=== PATIENT | male | born 1955 | race African-American/Black ===

== ENCOUNTER → 2017-05-24 | Outpatient (CLI) | payer OTHER | END | disposition home or self-care (01) | LOC: NM 12:21 | DX: I10 Essential (primary) hypertension (principal); Z87.891 Personal history of nicotine dependence | CPT/HCPCS: 93017 ==

== ENCOUNTER 2017-07-16 10:35 | Inpatient (IN) | payer OTHER ==
[2017-07-16 11:13] LABS: AGAP ISTAT 16 mmol/L (6-14); BUN ISTAT 49 mg/dL (8-26); CHLORIDE ISTAT 92 mmol/L (98-110); CREATININE ISTAT 3.3 mg/dL (0.5-1.4); GLUCOSE ISTAT 126 mg/dL (70-99); HEMATOCRIT ISTAT 47 % (37-52); ION CA ISTAT 1.02 mmol/L (1.13-1.32); POTASSIUM ISTAT 4.1 mmol/L (3.5-5.0); SODIUM ISTAT 128 mmol/L (135-145); TOT CO2 ISTAT 25 mmol/L (23-32)
[2017-07-16 11:18] LABS: ADD MAN DIFF? YES; BASO % 0 % (0-3); EOS % 0 % (0-3); HEMATOCRIT 43.7 % (39.0-53.0); HEMOGLOBIN 14.9 g/dL (13.0-17.5); LYMPH # 0.8 x10^3/uL (1.0-4.8); LYMPH % 16 % (24-48); MEAN CORPUSCULAR HEMOGLOBIN 31 pg (25-35); MEAN CORPUSCULAR HGB CONC 34 g/dL (31-37); MEAN CORPUSCULAR VOLUME 91 fL (79-100); MONO % 19 % (0-9); NEUT # 3.4 x10^3uL (1.8-7.7); NEUT % 65 % (31-73); PLATELET COUNT 135 x10^3/uL (140-400); RED CELL DISTRIBUTION WIDTH 13.5 % (11.5-14.5); WHITE BLOOD COUNT 5.3 x10^3/uL (4.0-11.0)
[2017-07-16 11:26] LABS: ANION GAP 13 (6-14); BLOOD UREA NITROGEN 52 mg/dL (8-26); CALCIUM 9.3 mg/dL (8.5-10.1); CARBON DIOXIDE 26 mmol/L (21-32); CHLORIDE 90 mmol/L (98-107); CREATININE 3.4 mg/dL (0.7-1.3); GFR 22.5; GLUCOSE 130 mg/dL (70-99); SODIUM 129 mmol/L (136-145)
[2017-07-16 11:28] LABS: TROPONIN BY ISTAT 0.01 ng/ml (<0.08)
[2017-07-16 11:31] LABS: INR 1.1 (0.8-1.1); PROTHROMBIN TIME PATIENT 13.4 SEC (11.7-14.0)
[2017-07-16 11:32] LABS: ALBUMIN 4.2 g/dL (3.4-5.0); ALK PHOS 86 U/L (46-116); ALT (SGPT) 226 U/L (16-63); AST (SGOT) 153 U/L (15-37); DIRECT BILIRUBIN 0.2 mg/dL (0.0-0.2); LIPASE 779 U/L (73-393); MAGNESIUM 2.7 mg/dL (1.8-2.4); TOTAL BILIRUBIN 0.8 mg/dL (0.2-1.0); TOTAL PROTEIN 8.5 g/dL (6.4-8.2)
[2017-07-16 11:35] LABS: TROPONINI < 0.017 ng/mL (0.000-0.055)
[2017-07-16 11:41] LABS: CKMB INDEX 0.6 % (0-4); CKMB MASS 2.3 ng/mL (0.0-3.6); CREATINE KINASE 381 U/L (39-308)
[2017-07-16 11:41] LABS: NT-PRO BNP 141 pg/mL (0-124)
[2017-07-16 11:48] LABS: % BANDS 1 % (0-9); % LYMPHS 17 % (24-48); % MONOS 14 % (0-10); % SEGS 68 % (35-66)
[2017-07-16 11:49] LABS: PLT ESTIMATE ADEQUATE (ADEQUATE)
[2017-07-16] MEDS: IV NORMAL SALINE 1000ML BAG 1,000 ML IV ×4 (11:55→17:33)
[2017-07-16 12:18] LABS: ETHANOL < 10 mg/dL (0-10)
[2017-07-16 13:18] LABS: BILIRUBIN,URINE SMALL (NEG); CLARITY,URINE TURBID; COLOR,URINE YELLOW; GLUCOSE,URINE NEGATIVE (NEG); NITRITE,URINE NEGATIVE (NEG); PROTEIN,URINE 30 mg/dL (NEG-TRACE); UROBILINOGEN,URINE 0.2 mg/dL (0.2 mg/dL)
[2017-07-16 13:35] LABS: AMPHETAMINE/METHAMPHETAMINE NEG (NEG); BARBITURATES NEG (NEG); BENZODIAZEPINES NEG (NEG); CANNABINOIDS NEG (NEG); COCAINE NEG (NEG); ETHANOL, URINE NEG (NEG); METHADONE NEG (NEG); OPIATES NEG (NEG); PHENCYCLIDINE NEG (NEG)
[2017-07-16 13:42] LABS: BACTERIA,URINE 0 /HPF (0-FEW); HYALINE CASTS, URINE MANY /HPF; SQUAMOUS EPITHELIAL CELL,UR FEW /LPF; WBC,URINE 0 /HPF (0-4)
[2017-07-16] MEDS ORDERED: ONDANSETRON PF 4 MG/2 ML VIAL. IV ×2 (13:45→16:00)
[2017-07-16] MEDS ORDERED: DOCUSATE SODIUM 100 MG CAPSULE. PO (16:00)
[2017-07-16] MEDS ORDERED: MORPHINE SULFATE 4 MG/ML DISP.SYRIN. IV (16:00)
[2017-07-16] MEDS ORDERED: ACETAMINOPHEN 325 MG TABLET. PO (16:00)
[2017-07-16] MEDS ORDERED: traMADol 50 MG TABLET PO (16:00)
[2017-07-16] MEDS ORDERED: hydrALAZINE 20 MG/ML VIAL. IVP (16:00)
[2017-07-16 17:39] LABS: TROPONINI < 0.017 ng/mL (0.000-0.055)
[2017-07-16 20:15] LABS: TROPONINI < 0.017 ng/mL (0.000-0.055)
[2017-07-16] MEDS: HEPARIN PF for SUB-Q USE 5,000 UNIT/0.5 ML VIAL. SQ (22:00)
[2017-07-16] MEDS: SIMVASTATIN 40 MG TABLET. PO (22:20)
[2017-07-17] MEDS: IV NORMAL SALINE 1000ML BAG 1,000 ML IV (02:00)
[2017-07-17] MEDS: HEPARIN PF for SUB-Q USE 5,000 UNIT/0.5 ML VIAL. SQ ×2 (05:23→14:00)
[2017-07-17 05:45] LABS: ADD MAN DIFF? NO
[2017-07-17 05:51] LABS: BASO % 0 % (0-3); EOS # 0.1 x10^3/uL (0.0-0.7); EOS % 2 % (0-3); HEMATOCRIT 39.8 % (39.0-53.0); HEMOGLOBIN 13.1 g/dL (13.0-17.5); LYMPH # 1.4 x10^3/uL (1.0-4.8); LYMPH % 25 % (24-48); MEAN CORPUSCULAR HEMOGLOBIN 31 pg (25-35); MEAN CORPUSCULAR HGB CONC 33 g/dL (31-37); MEAN CORPUSCULAR VOLUME 93 fL (79-100); MONO # 1.3 x10^3/uL (0.0-1.1); MONO % 25 % (0-9); NEUT # 2.6 x10^3uL (1.8-7.7); NEUT % 48 % (31-73); PLATELET COUNT 128 x10^3/uL (140-400); RED BLOOD COUNT 4.29 x10^6/uL (4.30-5.70); RED CELL DISTRIBUTION WIDTH 13.5 % (11.5-14.5); WHITE BLOOD COUNT 5.5 x10^3/uL (4.0-11.0)
[2017-07-17 06:18] LABS: ALBUMIN 3.5 g/dL (3.4-5.0); ALBUMIN/GLOBULIN RATIO 0.9 (1.0-1.7); ALK PHOS 70 U/L (46-116); ALT (SGPT) 159 U/L (16-63); ANION GAP 12 (6-14); AST (SGOT) 92 U/L (15-37); BLOOD UREA NITROGEN 32 mg/dL (8-26); BUN/CREATININE RATIO 20 (6-20); CALCIUM 8.6 mg/dL (8.5-10.1); CARBON DIOXIDE 26 mmol/L (21-32); CHLORIDE 102 mmol/L (98-107); CREATININE 1.6 mg/dL (0.7-1.3); DIRECT BILIRUBIN 0.2 mg/dL (0.0-0.2); GFR 53.6; GLUCOSE 103 mg/dL (70-99); POTASSIUM 4.8 mmol/L (3.5-5.1); SODIUM 140 mmol/L (136-145); TOTAL BILIRUBIN 0.6 mg/dL (0.2-1.0); TOTAL PROTEIN 7.2 g/dL (6.4-8.2)
[2017-07-17 06:24] LABS: LIPASE 562 U/L (73-393)
[2017-07-17 06:24] LABS: CHOLESTEROL 222 mg/dL (0-200); CHOLESTEROL/HDL RATIO 1.9; HDLC 116 mg/dL (40-60); LDLC 98 mg/dL (0-100); NON-HDL CHOLESTEROL 106 mg/dL (0-129); TRIGLYCERIDES 39 mg/dL (0-150); VLDLC 8 mg/dL (0-40)
[2017-07-17 07:42] LABS: PLT ESTIMATE ADEQUATE (ADEQUATE)
[2017-07-17 11:29] LABS: HCV ANTIBODY <0.1 s/co ratio (0.0-0.9); HEP A IGM ABDY Negative (Negative); HEP B SURFACE AG Negative (Negative)
[2017-07-17] MEDS: LOSARTAN POTASSIUM 50 MG TABLET. PO (12:00)
== END 2017-07-17 14:19 | disposition home or self-care (01) | DRG 683 ==
LOC: ER 10:35 → 6 SOUTH 12:30
DX: N17.9 Acute kidney failure, unspecified (principal); I50.30 Unspecified diastolic (congestive) heart failure; I11.0 Hypertensive heart disease with heart failure; I27.20 Pulmonary hypertension, unspecified; I95.9 Hypotension, unspecified; E87.1 Hypo-osmolality and hyponatremia; E78.5 Hyperlipidemia, unspecified; E86.0 Dehydration; G47.00 Insomnia, unspecified; Z87.891 Personal history of nicotine dependence; Z83.3 Family history of diabetes mellitus
CPT/HCPCS: 36415; 71045; 76700; 80047; 80048; 80053; 80061; 80074; 80076; 80307; 81001; 82248; 82553; 83690; 83735; 83880; 84443; 84484; 85007; 85025; 85610; 93005; 93306; 93880; 96360; 96361; 97110-GP; 97161-GP; 97165-GO; 99285-25; G0480; J7030